=== PATIENT | male | born 1990 | race Caucasian/White ===

== ENCOUNTER 2019-02-09 20:20 | Emergency (ER) | payer BC ==
[~2019-02-09] VITALS: Ht 182.9 cm; Wt 83.9 kg
[2019-02-09 21:16] VITALS: BP_SYST 151
--- NOTE | 2019-02-09 21:21 | NUR ---
Pt placed to ER waiting room in stable condition.
--- NOTE | 2019-02-09 22:23 | NUR ---
Patient to ER bed 7 to gown for evaluation. Side rails up. Report given to Beni FOOTE.
--- NOTE | 2019-02-09 22:32 | NUR ---
Pt C/O Lt mid back pain since [id number] this afternoon. Pt denies any recent trauma or heavy lifting recently. Pt states he was "standing up and heard a pop in my back". Pt attempted to relieve pain with Ibuprofen with no relief. Pt states pain progressively worsened arounf 4-5pm. Pt denies any N/V or any other symptoms at this time. Vital signs are stable, will continue to monitor.
--- NOTE | 2019-02-09 23:35 | NUR ---
ER Dr. Panchal at bedside examining patient.
[2019-02-09] MEDS ORDERED: KETOROLAC TROMETHAMINE 60 MG/2 ML VIAL IM ONE (23:45)
--- NOTE | 2019-02-09 23:54 | NUR ---
Pt has been medicated for pain management. Pt tolerated medication well will continue to monitor.
[2019-02-10 01:15] VITALS: BP_SYST 126
--- NOTE | 2019-02-10 01:15 | NUR ---
Patient given written and verbal discharge instructions and verbalizes understanding. ER MD discussed with patient the results and treatment provided. Patient in stable condition. ID arm band removed. Rx of Flexeril and Motrin given. Patient educated on pain management and to follow up with PMD. Pain Scale 3/10. Opportunity for questions provided and answered. Medication side effect fact sheet provided.
== END 2019-02-10 01:15 | disposition home or self-care (01) ==
LOC: SED 20:20
DX: S39.012A Strain of muscle, fascia and tendon of lower back, initial encounter (principal); M54.9 Dorsalgia, unspecified; X58.XXXA Exposure to other specified factors, initial encounter; Y93.89 Activity, other specified; Y92.89 Other specified places as the place of occurrence of the external cause; Y99.8 Other external cause status
CPT/HCPCS: 81002; 96372; 99283; J1885